=== PATIENT | female | born 1960 | race Caucasian/White ===

== ENCOUNTER 2016-07-24 15:33 | Emergency (ER) | payer MEDICARE ==
[~2016-07-24 15:33] MED LIST: ASCORBIC ACID500 MG PO; ATARAX-DPS25 MG PO; BENADRYL-DPS25 MG PO; BRINTELLIX10 MG PO; BUDESONIDE0.5 MG/2 M IH; BUSPAR DPS15 MG PO; CHLORPHENIRAMINE PO; CLARITIN DPS10 MG PO; DELTASONE DPS10 MG PO; DESYREL-DPS50 MG PO; DULERA 100/58.8 GM IH; DUONEB DPS3 ML IH; FEOSOL-DPS325 MG PO; HYDROCODONE PO; LACTULOSE20 GM/30 M PO; LASIX DPS20 MG PO; LEVAQUIN D IV; LEVAQUIN DPS500 MG PO; LINZESS145 MCG PO; LYRICA75 MG PO; MAALOX DPS30 ML PO; MICRO-K DPS10 MEQ PO; MONTELUKAST SOD10 MG PO; MUCINEX600 MG PO; MUCOMYST 20% DP30 ML PO; MUCOMYST 20% IH; NOLVADEX DPS20 MG PO; NUCYNTA50 MG PO; PRILOSEC DPS20 MG PO; PROAIR RESPICL90 MCG IH; PROTONIX40 MG PO; PROVENTIL HFA6.7 GM IH; ROBITUSSIN AC D30 ML PO; SINGULAIR10 MG PO; SOLU-MEDRO125 MG/2 M IV; SPIRIVA18 MCG IH; TYLENOL DPS325 MG PO; ULTRAM DPS50 MG PO; XANAX DPS0.5 MG PO; ZANAFLEX4 MG PO; [UNRECOGNIZED DRUG - OTHER] PO
--- NOTE | 2016-07-25 00:28 | ER ---
ADMIT: 07/24/2016 RM/LOC: ER [facility] MR#: [id number] [id number] [place], [place] [address] MARSHA BLANC [address] [place] [address] Emergency Room Report SEX: F AGE: 55 : 1960 DATE: 07/24/2016 HISTORY OF PRESENT ILLNESS: The patient is a 55-year-old female with past medical history of bronchitis, asthma, breast cancer, came to the ER with chief complaint of 2 days of increasing cough, shortness of breath, and wheezing. The patient used nebulizer DuoNeb at home which did not work. The patient denies any fever or chills. The patient also states she had lots of phlegm which is white to yellow in color. PHYSICAL EXAMINATION: VITAL SIGNS: The patient had O2 saturation of 95% to 96% on room air, was not tachypneic, was not tachycardic and was afebrile. The patient was coughing multiple times which was productive during the physical examinations. HEAD AND NECK: There was mild erythema in the throat. LUNGS: Have bilateral wheezing and some questionable crackles versus upper airway sounds were audible. ABDOMEN: Soft. The rest of the physical exam is noncontributory. DISPOSITION: The patient received breathing treatment which decreased the wheezing bilaterally. Chest x-ray did not show any obvious infiltration. The patient received Decadron shot IM 10 mg. The patient was re-examined. The patient can be discharged to home with a prescription for Levaquin and also prednisone and follow up with the primary doctor as needed. Asher Garvin MD/ lizandro JOB #: [id number] CC: Seth Tang MD, Attending Physician Rossana Alfred MD, Family Physician
[2016-07-27] MEDS ORDERED: CALTRATE-600 W600 MG PO (13:54)
[2016-07-27] MEDS ORDERED: CLARITIN DPS10 MG PO (14:03)
[2016-07-27] MEDS ORDERED: NOVOLOG100 UNIT/2 SQ (14:10)
[2016-07-27] MEDS ORDERED: XOPENEX1.25 MG/3 IH (14:15)
[2016-07-27] MEDS ORDERED: GLUCAGON HCL1 MG IM (14:15)
[2016-07-27] MEDS ORDERED: PEPCID DPS20 MG PO (14:16)
[2016-07-27] MEDS ORDERED: SPIRIVA18 MCG IH (14:17)
[2016-07-27] MEDS ORDERED: VITAMIN D1000 UNIT PO (14:17)
[2016-07-27] MEDS ORDERED: THERAPEUTIC MUL1 TAB PO (14:17)
[2016-07-27] MEDS ORDERED: GLUTOSE 1537.5 GM PO (14:19)
[2016-07-27] MEDS ORDERED: ZOSYN 3.3753.375 GM IV (14:19)
[2016-08-17] MEDS ORDERED: CEFDINIR300 MG PO (11:54)
[2016-08-17] MEDS ORDERED: BENTYL-DPS20 MG PO (11:55)
[2016-08-17] MEDS ORDERED: PROVENTIL HFA6.7 GM IH (11:56)
[2016-08-17] MEDS ORDERED: ACETADOTE200 MG/1 M IH (12:01)
[2016-08-17] MEDS ORDERED: PULMICORT0.5 MG/21 IH (12:01)
[2016-08-17] MEDS ORDERED: CULTURELLE1 CAP PO (12:02)
[2016-08-17] MEDS ORDERED: AMBIEN DPS5 MG PO (12:03)
[2016-08-17] MEDS ORDERED: TECFIDERA240 MG PO (12:04)
[2016-08-17] MEDS ORDERED: DELTASONE DPS1 MG PO (12:05)
[2016-08-17] MEDS ORDERED: POTASSIUM CHLO20 ME2 PO (12:07)
[2016-08-17] MEDS ORDERED: TUDORZA PRESS400 MCG IH (12:08)
[2016-08-17] MEDS ORDERED: DULERA 100/58.8 GM IH (12:08)
== END 2016-07-24 18:00 | disposition home or self-care (01) ==
LOC: ER 15:33
DX: J44.9 Chronic obstructive pulmonary disease, unspecified (principal); Z88.1 Allergy status to other antibiotic agents; Z79.899 Other long term (current) drug therapy

== ENCOUNTER 2016-07-25 13:11 | Inpatient (IN) | payer MEDICARE, OTHER ==
[~2016-07-25] VITALS: Ht 157.5 cm; Wt 78.4 kg
[2016-07-27] MEDS ORDERED: CALTRATE-600 W600 MG PO (13:54)
[2016-07-27] MEDS ORDERED: CLARITIN DPS10 MG PO (14:03)
[2016-07-27] MEDS ORDERED: NOVOLOG100 UNIT/2 SQ (14:10)
[2016-07-27] MEDS ORDERED: GLUCAGON HCL1 MG IM (14:15)
[2016-07-27] MEDS ORDERED: XOPENEX1.25 MG/3 IH (14:15)
[2016-07-27] MEDS ORDERED: PEPCID DPS20 MG PO (14:16)
[2016-07-27] MEDS ORDERED: VITAMIN D1000 UNIT PO (14:17)
[2016-07-27] MEDS ORDERED: THERAPEUTIC MUL1 TAB PO (14:17)
[2016-07-27] MEDS ORDERED: SPIRIVA18 MCG IH (14:17)
[2016-07-27] MEDS ORDERED: ZOSYN 3.3753.375 GM IV (14:19)
[2016-07-27] MEDS ORDERED: GLUTOSE 1537.5 GM PO (14:19)
--- NOTE | 2016-07-28 08:14 | CO ---
ADMIT: 07/25/2016 RM/LOC: 521 [facility] MR#: [id number] [address] [address] MARSHA LUO [address] [place] [address] Consultation SEX: F AGE: 55 : 1960 DATE OF CONSULTATION: 07/25/2016 ATTENDING PHYSICIAN: Rossana Alfred CONSULTING PHYSICIAN: Octaviano Markham MD, [facility] REASON FOR REFERRAL: Shortness of breath. HISTORY OF PRESENT ILLNESS: Ms. Luo is a 55-year-old female, who carries a lifelong diagnosis of asthma, but she also has COPD apparently. I do not have any PFTs on her previous notes to document this other than the stated history in her chart. She has been having a coughing episodes for the past several days and no fevers or chills. She was seen in the ER last night, given the steroids and she presented again today for worsening shortness of breath. She does not feel much better than when she arrived to the emergency room today. She states that this is fairly typical for her. I do have actual some PFTs from her on 01/22/2016, which showed a FEV1 of 1.70, 70% predicted, and without any change post-bronchodilator. The flow volume loop is unusual and that there is a flattening of the expiratory limb with a normal inspiratory loop. The FEV1/FVC ratio was 68%. She is not on prednisone at home. She is a previous smoker, but quit years ago. She has had a cough, which has been nonproductive for 4 days. For some reason, today, she is not coughing. She has no fevers, chills, night sweats. No chest pain. She has no hemoptysis. She has no history of PVD or DVT or PE. Her nebulizers usually improve her, but not dramatically. This is consistent with her usual symptoms. She usually gets the symptoms in the fall, but she has noted that she has been having more problems with it in the spring as well. She has no orthopnea, no PND, no pedal edema. She has a dog, which she is not allergic to. She is allergic to pollens and cats. She had a CT of her chest in May of this year, which showed no residual opacity in superior segment of right lower lobe; however, inferior aspect of the right upper lobe anterior and inferior aspects, possibly ingestion to superior segment of middle lobe. Adjacent to the fissure, there is a patchy infiltrate somewhat nodular in appearance, that was in May of this year. She is followed by the Pulmonary from [place] as an outpatient. She had CTs of her sinuses in May, showed prior surgery of right sinus low- grade paranasal sinus disease, no findings that suggest acute sinusitis. Typically, she uses her rescue inhalers very infrequently. She describes her symptoms more in her neck and more of breathing in and out. PAST MEDICAL HISTORY: Remarkable for breast cancer 5 years ago, treated with chemo and radiation; multiple sclerosis; hiatal hernia. She has had gastric surgery in the past. She has hypothyroidism, history of depression, kyphoplasty in the past, hysterectomy. ALLERGIES: NO KNOWN DRUG ALLERGIES. SOCIAL HISTORY: Quit smoking in 2010. CURRENT MEDICATIONS: ADMIT: 07/25/2016 RM/LOC: 521 [facility] MR#: [id number] [address] [address] MARSHA LUO [facility] [place] [address] Consultation SEX: F AGE: 55 : 1960 1. Maalox. 2. Mucomyst. 3. Ferrous sulfate. 4. Vitamin C. 5. Alprazolam. 6. Levaquin. 7. Solu-Medrol. 8. Lactulose. REVIEW OF SYSTEMS: Other than mentioned above. GENERAL: No fevers, chills, night sweats. HEENT: No visual problems. No problems hearing. No sinus congestion. CARDIAC and PULMONARY: Other than mentioned above, negative. GI: No reflux symptoms currently. No nausea, vomiting, diarrhea, constipation. No abdominal pain. : No dysuria or pyuria. MUSCULOSKELETAL: No arthralgias or arthritis. SKIN: No acute lesions. NEURO: No focal weakness. She does have AMS. PHYSICAL EXAMINATION: GENERAL: She is alert and oriented x3, in no apparent distress, breathing is unlabored at the current time on room air. VITAL SIGNS: Blood pressure 157/83, pulse 100, respirations 118, respiratory rate 24, temperature is 99.3. HEENT: Sclerae nonicteric. Throat is not erythematous. NECK: Supple. Trachea is midline. No cervical or supraclavicular adenopathy. No bruits. No stridor. LUNGS: Clear to auscultation, but with prolonged expiratory phase I should mention when her breathing pattern she does have an audible noise when she breathes in, it sounds possibly mild stridorous. CV: Regular rate without murmurs, rubs, or gallops. ABDOMEN: Active bowel sounds. Soft, nontender. EXTREMITIES: No cyanosis, clubbing, or edema. LABORATORY DATA: White count 17.2, hemoglobin 11.9, platelets are 290. Electrolytes are all normal except for creatinine slightly high at 1.2. IMAGING: Chest x-ray shows no active pulmonary disease. The CT abnormalities will need to be followed up, I will defer this until after she improves and to her outpatient hydraulic press tender. We need to inform her that this needs to be worked up in the future as well. IMPRESSION: 1. Dyspnea. 2. Chronic obstructive pulmonary disease. ADMIT: 07/25/2016 RM/LOC: 521 [facility] MR#: [id number] [address] [address] MARSHA LUO [address] [place] [address] Consultation SEX: F AGE: 55 : 1960 RECOMMENDATION/DISCUSSION: The patient's flow volume loop and her symptoms suggest more of a fixed, I am wondering if she may have more of a fixed obstruction. I initially thought with her description of her neck episode, she may have vocal cord dysfunction, but that would be somewhat refuted by her previous pulmonary function tests with normal inspiratory limb. I would like to repeat these in the morning. I would be interested to see if that plateau or the flattening of the expiratory limb persists to suggest a variable intrathoracic obstruction. The patient has been started on steroids and antibiotics, frequent bronchodilators, we will see if this improves her tonight. She states that this is fairly typical for her presentations. Thank you for the consultation. Octaviano Markham MD, FCCP/ modl JOB #: [id number] CC: Rossana Alfred, Attending Physician Rossana Alfred, Family Physician
--- NOTE | 2016-07-29 17:07 | ER ---
ADMIT: 07/25/2016 RM/LOC: 521 [facility] MR#: [id number] ACC#: [id number] [address] [place], [place] [address] MARSHA BLANC [address] [place] [address] Emergency Room Report SEX: F AGE: 55 : 1960 DATE: 07/25/2016 ADDENDUM: A 55-year-old white female coming in with shortness of breath. She does have asthma that kind of flares up recurrently. She was seen last night here, given steroids as treatment but just was not getting any better. White count 17.2. I do not know if that is from steroids. Her glucose is 325. She does have diabetes, again I do not know if the prednisone make that worse or not. Chest x-ray, there is questionable patchy area in the right upper quadrant but she has no fever. She is not coughing up anything. I do not know if that is significant or not. I spoke with Dr. Gaytan. The patient is not septic. This is asthmatic reactive disease with acute exacerbation is what it is. She also has history of chronic pain syndrome as well with narcotic dependency. Dr. Gaytan will leave orders for her. CONDITION ON DISCHARGE AND ADMISSION: Fair. Kash Carroll MD/ modl JOB #: [id number] CC: Rossana Alfred MD, Attending Physician Rossana Alfred MD, Family Physician
--- NOTE | 2016-08-04 08:26 | DS ---
ADMIT: 07/25/2016 RM/LOC: 521 [facility] MR#: [id number] [id number] [place], [place] [address] YANCY BLANC [address] [place] [address] Discharge Summary SEX: F AGE: 55 : 1960 CORRECTION: 08/01/2016 1149 DJS ADMISSION DATE: 07/25/2016 DISCHARGE DATE: 07/26/2016 FINAL DIAGNOSIS: 1. Ruptured abdominal viscus with pneumoperitoneum and developing abdominal abscess. 2. Asthma with mild exacerbation. 3. Type 2 diabetes with increased blood sugars due to current medical status. 4. History of chronic multiple sclerosis. 5. History of breast cancer and secondary peripheral neuropathy from chemotherapy. 6. Depression with anxiety. HOSPITAL COURSE: Yancy was admitted on July 25 complaining of shortness of breath. She said she feels like she cannot take a full breath. She started to cough a little bit but really coughing was not her main complaint. She was admitted, started on IV antibiotic and IV steroid aimed at the asthma. She is not requiring supplemental oxygen. She is afebrile. However, overnight since she was admitted, she started to develop more and more abdominal distention and pain. She had a lot of tympany on the abdominal exam, and x-ray showed free air under the diaphragm. She then underwent CT scan which reveals pneumoperitoneum and findings of post Jihan-en-Y surgical changes and "large loculated fluid collection posterior to the anastomotic site. Anastomotic leak and developing abscess a primary consideration." She also has some interstitial nodular opacities in the lungs noted. Radiologist read "infectious process is primary consideration, could not exclude fungal etiology. 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 Because Yancy had a previous pneumoperitoneum and a mycotic abscess removed in January of 2016 at [facility] in [place], I am transferring her back there for reevaluation by her surgeon there. I also believe she will need consultants with Gastroenterology. We do not have the service here in [place]. The patient has chronic esophagitis, history of pyloric channel ulcer, and duodenitis. I spoke with the hospitalist, Dr. Acosta, and she accepted the patient in transfer. Patient will transfer via [facility] ambulance service. She is unable to sit up due to severe pain from her pneumoperitoneum. The patient has accepted the risks and benefits of transfer and understands the need to transfer for surgical intervention and gastroenterology intervention. On transfer, we will continue her IV fluids and keep her n.p.o. She last ate at about 7:30 a.m. with a small amount of breakfast. I will continue her other medications and let the accepting physician decide on her oral medications depending on the length of time she will be n.p.o. She is currently on ADMIT: 07/25/2016 RM/LOC: 521 [facility] MR#: [id number] [address] [place], [place] [id number] YANCY BLANC [address] [place] [address] Discharge Summary SEX: F AGE: 55 : 1960 Levaquin IV as well as Zosyn IV and Solu-Medrol IV. We are using sliding scale insulin. I note that just prior to transfer she had a blood glucose of 190. Since she is not eating, I will not treat that with insulin but will just monitor with her Accu-Cheks at the accepting site. Rossana Alfred MD/ martin JOB #: [id number] CC: Rossana Alfred MD, Attending Physician Rossana Alfred MD, Family Physician Natali Acosta MD [address] [address] CORRECTION: 08/01/2016 1149 DJS
--- NOTE | 2016-08-12 13:58 | HP ---
ADMIT: 07/25/2016 RM/LOC: 521 [facility] MR#: [id number] [address] [address] MARSHA BLANC [address] [place] [address] History and Physical SEX: F AGE: 55 : 1960 DATE OF SERVICE: CHIEF COMPLAINT: Severe shortness of breath, dyspnea, and cough. CLINICAL HISTORY: The patient is a 55-year-old white female, with history of COPD/asthma with history of frequent exacerbations. Patient had onset of upper respiratory symptoms with congestion and cough on 07/22/2016, has gotten progressively worse since that time with increasing dyspnea and increasing cough. Despite using her nebulizer frequently, her respiratory symptoms have progressively gotten worse. As a result of that, she initially went to the ER on Monday07/24/2016, was seen with what was felt to be an acute bronchitis and acute asthma exacerbation. Her chest x-ray at that time showed no pneumonia. She was given several breathing treatments. She was also given Decadron IM and started on oral Levaquin in addition to the Keflex that she had been started on 07/22/2016. The patient notes that after being in the ER on 07/24/2016, she did better for about 4 hours. Then her wheezing and dyspnea reoccurred. She was unable to sleep through the night of Monday night and because of her increasing wheezing and dyspnea, she re-presented to the ER on 07/25/2016, and was seen by Dr. Carroll. Repeat chest x-ray showed questionable infiltrate in the right upper lobe that was not present on the chest x-ray from the day prior. In view of her worsening symptoms and acute COPD and acute asthma exacerbation, it was felt best to admit the patient since she did not respond real well to initial nebulizer treatments and steroids given in the ER, again on 07/25/2016. Subsequently we are admitting her to the hospital with acute COPD exacerbation. PAST MEDICAL HISTORY: The patient was last hospitalized with similar symptoms on 04/19/2016, was hospitalized for several days at that time with an acute COPD exacerbation due to asthmatic bronchitis. She is noted to have had multiple admissions for similar respiratory symptoms. Her chronic medical problems are noted to include: 1. COPD/asthma. 2. Major depressive disorder, recurrent. 3. Type 2 diabetes. 4. Esophageal reflux with history of esophageal stricture and prior stenting of the esophagus. 5. Gastroparesis. 6. Hyperlipidemia. 7. Hypothyroidism. 8. Osteoporosis. 9. Lumbar spinal stenosis. 10.Chronic pain syndrome. 11.History of breast cancer status post mastectomy and chemo radiation therapy. 12.Chemotherapy-induced peripheral neuropathy. 13.Multiple sclerosis. 14.Chronic anxiety disorder. 15.ADHD. ADMIT: 07/25/2016 RM/LOC: 521 [facility] MR#: [id number] [address] [address] MARSHA BLANC [facility] [place] [address] History and Physical SEX: F AGE: 55 : 1960 PREVIOUS SURGICAL PROCEDURES: include a left mastectomy in September of 2010 and a right mastectomy in 2011. The patient has history of previous jejunostomy. She has a history of bilateral salpingo-oophorectomy, previous tubal ligation. She has had to have kyphoplasty twice for vertebral compression fractures. She has had multiple EGDs and colonoscopy. In 2016, she had an esophageal dilatation in the fall. In 2015, she also had an exploratory laparotomy in [place] at [facility]. She has had a previous intraabdominal fungal abscess. The patient is noted to also have a history of immunodeficiency, has a history of IgG deficiency and receives IVIG on a monthly basis. She is followed by Infectious Disease for her immune deficiency disorder. CURRENT MEDICATIONS: Include. 1. DuoNeb via twin jet nebulizer q.i.d. and p.r.n. 2. Tudorza 400 mcg 1 puff twice daily. 3. Mucomyst 20% via twin jet nebulizer twice a day. 4. ProAir HFA 2 puffs every 4 hours p.r.n. 5. Lasix 20 mg twice a day. 6. Potassium chloride 20 mEq twice a day. 7. Zantac 150 mg daily. 8. Protonix 40 mg twice a day. 9. Trintellix 20 mg daily. 10.Mucinex 1200 mg twice daily. 11.Claritin 10 mg daily. 12.Singulair 10 mg at bedtime. 13.Tizanidine 4 mg 1 every 8 hours for muscle spasms. 14.Hydroxyzine 25 mg 1 tab every 8 hours p.r.n. anxiety. 15.Xanax 0.5 mg t.i.d. 16.BuSpar 15 mg t.i.d. 17.Lyrica 75 mg t.i.d. 18.Linzess 145 mcg one cap daily. 19.Phenergan DM 1 teaspoon every 4 hours p.r.n. cough. 20.Trazodone 25-50 mg at bedtime. 21.Ambien 5 mg 1 daily at bedtime. 22.Tramadol 50 mg 1 or 2 tablets every 8 hours for pain. 23.Nucynta ER 50 mg 1 tab b.i.d. 24.Keflex 500 mg 2 caps b.i.d., this was started on 07/20/2016 at the onset of her URI symptoms. 25.Levofloxacin 750 mg one daily, started after being seen in the ER on 07/24/2016. 26.Prednisone 20 mg b.i.d. for 5 days started on 07/24/2016. 27.Multivitamin 1 daily. 28.Calcium 600 mg and vitamin D 1 daily. 29.Vitamin D3 of 2000 units daily. ALLERGIES: ALLERGIES INCLUDE SILVADENE TOPICAL APPOINTMENT. NO OTHER KNOWN ALLERGIES. SOCIAL HISTORY: The patient is a former smoker quit smoking about 5 years ADMIT: 07/25/2016 RM/LOC: 521 [facility] MR#: [id number] [address] [address] MARSHA BLANC [address] [place] [address] History and Physical SEX: F AGE: 55 : 1960 ago. She is a social drinker, has an occasional alcoholic beverage. She currently lives with her significant other and they have been together on a long-term basis. She denies any illicit drug use. In the past, has had abuse of her prescription opiates. FAMILY HISTORY: At this time is unremarkable, noncontributory. REVIEW OF SYSTEMS: CONSTITUTIONAL: The patient complains of chronic fatigue, weakness, and generally just never feeling well. HEENT: She denies any vision or hearing changes. Does complain of upper respiratory congestion. Has had scratchy throat, nasal and sinus congestion for the last 4 to 5 days. The patient does have history of esophageal motility disorder due to her chronic esophagitis and chronic esophageal stricture. She denies any recent vomiting. PULMONARY: The patient has a history of COPD/asthma, frequent bouts of bronchitis. Has been having increased cough and increased shortness of breath, audible wheezing for the last 4 to 5 days. She states her chest feels tight. She notes her cough is minimally productive, no hemoptysis. CARDIAC: No significant history of coronary artery disease. No syncope. No history of tachyarrhythmias. The patient notes that she has had significant orthopnea the last few nights and has had to sit up, unable to sleep lying down. GASTROINTESTINAL: History of chronic abdominal pain, chronic constipation. She has history of previous intraabdominal abscess. Also has history of esophageal stricture. No recent diarrhea. No melena or hematochezia. GENITOURINARY: No flank pain. No dysuria. MUSCULOSKELETAL: Chronic neck, pain chronic low back pain, generalized arthralgias. NEUROLOGIC: No focal symptoms. Does have frequent headaches. Does have history of multiple sclerosis. PSYCHIATRIC: History of chronic depression and anxiety. PHYSICAL EXAMINATION: VITAL SIGNS: Her temp is 100.8, pulse is 116, respirations 20, blood pressure 120/69, O2 saturation is 94% with oxygen at 2 L. O2 saturation in the ER at rest without oxygen was 90%-91%. Current weight 170 pounds. GENERAL: The patient is a 55-year-old white female, who appears significantly older than her stated age. She is somewhat anxious. She is sitting on the side of the bed noting that she is too short of breath to lay down. No audible wheezing noted at this time. HEENT: Revealed her ears to be clear. She has some mucoid nasal congestion. Nasal mucosa is boggy and inflamed. Do note her pupils are equal and reactive. Sclerae nonicteric. Vision grossly intact. Throat today is mildly inflamed. No exudate. Oral mucous membranes are moist. NECK: Noted to be supple. No neck vein distention. No neck masses. Thyroid not enlarged. LUNGS: Noted to be diminished throughout. Breath sounds are coarse. She has a few scattered expiratory wheezes and some coarse rhonchi. I cannot appreciate any rales. No dullness to percussion. ADMIT: 07/25/2016 RM/LOC: 521 [facility] MR#: [id number] [facility] [address] [address] MARSHA BLANC [address] [place] [address] History and Physical SEX: F AGE: 55 : 1960 HEART: Noted have a regular rhythm with tachycardia. No murmurs noted. ABDOMEN: Protuberant, somewhat distended. She is tympanic in all 4 quadrants. Bowel sounds are present. She has some mild diffuse tenderness with palpation. She has an incisional scar from prior exploratory laparotomy. No hernia is noted. I cannot appreciate any masses or organomegaly. No abdominal bruits. BREAST AND PELVIC: Exams not performed. EXTREMITIES: Noted to have 1+ pedal and ankle edema. Trace of pretibial edema. Peripheral circulation appears to be good with good pedal pulses. No calf tenderness. No evidence of thrombophlebitis. NEUROLOGIC: I cannot see any focal deficits. Balance seems to be normal. Gait is stable. Cranial nerves II through XII are grossly intact. MENTAL STATUS EXAMINATION: She is pleasant, cooperative. Affect is somewhat depressed. She seems to be very anxious. She is oriented x3. ASSESSMENT AT THE TIME OF ADMISSION: 1. Acute chronic obstructive pulmonary disease exacerbation/acute asthmatic bronchitis. 2. Early right upper lobe infiltrate suspected right upper lobe pneumonia. 3. Chronic obstructive pulmonary disease/asthma. 4. Type 2 diabetes. 5. Multiple sclerosis. 6. Chemotherapy-induced peripheral neuropathy. 7. Lumbar spinal stenosis. 8. Chronic pain syndrome. 9. Chronic gastroesophageal reflux disease, esophageal reflux with history of esophageal stricture. 10.Anemia of chronic disease. 11.Chronic abdominal pain. 12.Hypothyroidism. 13.Osteoporosis. 14.History of breast cancer status post bilateral mastectomy. 15.Immune deficiency disorder with IgG deficiency. PLAN: Plan is to admit the patient. We will treat aggressively for her COPD exacerbation with IV steroids, IV antibiotics, and frequent nebulizer treatments. We will ask Pulmonary Medicine to see her as well. We will continue with her usual chronic pain management. Francois Gaytan MD/ lizandro JOB #: [id number] CC: Rossana Alfred MD, Attending Physician Rossana Alfred MD, Family Physician
[2016-08-17] MEDS ORDERED: CEFDINIR300 MG PO (11:54)
[2016-08-17] MEDS ORDERED: BENTYL-DPS20 MG PO (11:55)
[2016-08-17] MEDS ORDERED: PROVENTIL HFA6.7 GM IH (11:56)
[2016-08-17] MEDS ORDERED: ACETADOTE200 MG/1 M IH (12:01)
[2016-08-17] MEDS ORDERED: PULMICORT0.5 MG/21 IH (12:01)
[2016-08-17] MEDS ORDERED: CULTURELLE1 CAP PO (12:02)
[2016-08-17] MEDS ORDERED: AMBIEN DPS5 MG PO (12:03)
[2016-08-17] MEDS ORDERED: TECFIDERA240 MG PO (12:04)
[2016-08-17] MEDS ORDERED: DELTASONE DPS1 MG PO (12:05)
[2016-08-17] MEDS ORDERED: POTASSIUM CHLO20 ME2 PO (12:07)
[2016-08-17] MEDS ORDERED: DULERA 100/58.8 GM IH (12:08)
[2016-08-17] MEDS ORDERED: TUDORZA PRESS400 MCG IH (12:08)
== END 2016-07-26 13:20 | disposition short-term general hospital (02) | DRG 202 ==
LOC: ER 13:11 → 5MS 15:45
PROVIDERS: ADMIT Family Medicine
DX: J45.901 Unspecified asthma with (acute) exacerbation (principal); J18.9 Pneumonia, unspecified organism; K65.1 Peritoneal abscess; D80.3 Selective deficiency of immunoglobulin G [IgG] subclasses; K66.8 Other specified disorders of peritoneum; E11.43 Type 2 diabetes mellitus with diabetic autonomic (poly)neuropathy; J44.0 Chronic obstructive pulmonary disease with (acute) lower respiratory infection; G62.0 Drug-induced polyneuropathy; J44.1 Chronic obstructive pulmonary disease with (acute) exacerbation; F32.9 Major depressive disorder, single episode, unspecified; K21.9 Gastro-esophageal reflux disease without esophagitis; K31.84 Gastroparesis; E78.5 Hyperlipidemia, unspecified; E03.9 Hypothyroidism, unspecified; M81.0 Age-related osteoporosis without current pathological fracture; G89.4 Chronic pain syndrome; M48.06 Spinal stenosis, lumbar region; T45.1X5A Adverse effect of antineoplastic and immunosuppressive drugs, initial encounter; K20.9 Esophagitis, unspecified; K44.9 Diaphragmatic hernia without obstruction or gangrene; G35 Multiple sclerosis; F41.9 Anxiety disorder, unspecified; F90.9 Attention-deficit hyperactivity disorder, unspecified type; Z87.891 Personal history of nicotine dependence; Z85.3 Personal history of malignant neoplasm of breast; Z90.12 Acquired absence of left breast and nipple; Z98.0 Intestinal bypass and anastomosis status; Z98.84 Bariatric surgery status; R10.0 Acute abdomen

== ENCOUNTER → 2016-08-12 | Outpatient (CLI) | payer MEDICARE ==
[~2016-08-12] MED LIST changes: +ACETADOTE200 MG/1 M IH; +AMBIEN DPS5 MG PO; +BENTYL-DPS20 MG PO; +CALTRATE-600 W600 MG PO; +CEFDINIR300 MG PO; +CULTURELLE1 CAP PO; +DELTASONE DPS1 MG PO; +GLUCAGON HCL1 MG IM; +GLUTOSE 1537.5 GM PO; +NOVOLOG100 UNIT/2 SQ; +PEPCID DPS20 MG PO; +POTASSIUM CHLO20 ME2 PO; +PULMICORT0.5 MG/21 IH; +TECFIDERA240 MG PO; +THERAPEUTIC MUL1 TAB PO; +TUDORZA PRESS400 MCG IH; +VITAMIN D1000 UNIT PO; +XOPENEX1.25 MG/3 IH; +ZOSYN 3.3753.375 GM IV
== END | disposition home or self-care (01) ==
LOC: RAD.S 10:28
DX: J18.9 Pneumonia, unspecified organism (principal); R91.8 Other nonspecific abnormal finding of lung field

== ENCOUNTER 2016-08-13 16:12 | Inpatient (IN) | payer MEDICARE, OTHER ==
[~2016-08-13] VITALS: Ht 157.5 cm; Wt 77.0 kg
[~2016-08-13 16:12] MED LIST changes: -ACETADOTE200 MG/1 M IH; -AMBIEN DPS5 MG PO; -BENTYL-DPS20 MG PO; -CEFDINIR300 MG PO; -CULTURELLE1 CAP PO; -DELTASONE DPS1 MG PO; -POTASSIUM CHLO20 ME2 PO; -PULMICORT0.5 MG/21 IH; -TECFIDERA240 MG PO; -TUDORZA PRESS400 MCG IH
--- NOTE | 2016-08-15 13:37 | HP ---
ADMIT: 08/13/2016 RM/LOC: [facility] MR#: [id number] [address] [address] MARSHA BLANC [address] [place] [address] History and Physical SEX: F AGE: 55 : 1960 DATE OF SERVICE: CHIEF COMPLAINT: Shortness of breath and wheezing. HISTORY OF PRESENT ILLNESS: The patient states she has had one day of increased shortness of breath, wheezing, and some fatigue. The patient has actually called in earlier today to the clinic line where I spoke with her and is very obvious that she was struggling to breathe and talk at the same time. I could also hear audible wheezing, so we sent the patient to the ER. Of note, the patient was recently discharged on Monday08/08/2016 from [facility] in [place], she had gone in a few weeks ago for a surgery on her Y- en-Jihan to be fixed. The patient has a history of radiation injury to the abdomen. She has had multiple surgeries for this while in the hospital there in [place], she developed pneumonia and was actually in the ICU for about 11 days, she said. The patient was on antibiotics and steroids and she recently just stopped her steroid taper today, and since being discharged on Monday, she said she has felt very well this week. Has not really had any complaints until today. She is not aware of any exposures to any illnesses, but she does mention she has allergy. She was outside today, is unsure if that is what is contributing to some of these symptoms worsening. PAST MEDICAL HISTORY: Significant for COPD and asthma, major depression, GERD with a history of stricture requiring straight dilation. 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 PAST SURGICAL HISTORY: Fairly extensive. She has had a double mastectomy, bilateral salpingo-oophorectomy, previous tubal ligation. She also has had kyphoplasty twice, esophageal dilation, exploratory lap with the most recent one being a few weeks ago in 2017. CURRENT MEDICATIONS: Include: 1. Loratadine 10 mg daily. 2. Bentyl 20 mg four times daily as needed. 3. The patient is on Ceftin ER 300 mg twice a day. 4. Ventolin as needed. 5. Tizanidine every 8 hours as needed. 6. Ultram 50 mg four times daily. 7. Tylenol 325 one to two tabs as needed. 8. Lyrica 75 mg three times daily. 9. Brintellix 20 mg daily. 10.BuSpar 15, 3 times a day. 11.Lasix 20 mg twice daily. 12.Singulair 10 mg at bedtime. 13.Mucinex 1200 mg twice a day. 14.Acetadote 200 mg twice daily inhaler. 15.Pulmicort 0.5 mg twice daily done with the Acetadote inhaler. ADMIT: 08/13/2016 RM/LOC: [facility] MR#: [id number] [address] [place] [id number] MARSHA BLANC [address] [place] [address] History and Physical SEX: F AGE: 55 : 1960 16.Linzess 145 mcg every other day. 17.Ambien at bedtime. 18.Alprazolam 0.5 mg three times daily. 19.Tecfidera 240 mg twice daily. ALLERGIES: SEASONAL ALLERGIES AND ALSO SILVADENE CREAM. FAMILY HISTORY: She states she is adopted. She does state some of her maternal aunts have had strokes in the past. SOCIAL HISTORY: She is a former smoker, quit 8 years ago. She states she does not currently drink. She denies any illicit drug use. REVIEW OF SYSTEMS: CONSTITUTIONAL/GENERAL: The patient does have a fever. She has had some chronic fatigue and weakness today. HEENT: No vision or hearing changes. Does have a little bit of upper respiratory congestion. No sore throat. Some mild nasal drainage. No dysphagia. No vomiting. She does complain of GERD from time to time. PULMONARY: Increasing shortness of breath today. Audible wheezing today. Increased work of breathing. No sputum production. CARDIAC: No chest pain. She has had some more orthopnea. Last few nights, she is having this more due to her difficulty breathing. GI: No abdominal pain. No diarrhea or constipation. Recently just underwent surgery. : No flank pain. No dysuria. MUSCULOSKELETAL: No edema bilaterally in the lower extremities. She does have chronic low back pain and other nonspecific pain at times, and joint arthralgias. NEURO: No seizure-like activities. No stroke-like symptoms. She does have a history of multiple sclerosis. PSYCHIATRY: She confirmed anxiety and depression. PHYSICAL EXAMINATION: VITAL SIGNS: Most recent vital signs show temperature 98.3, pulse of 115, respiratory rate of 18, blood pressure 116/85, and O2 sats of 94% on room air. Of note, the patient did have a temperature of 100.4 when arriving to the ER. GENERAL: She is alert and oriented x3. She is very pleasant. She has some mild acute distress secondary to the increased work of breathing. HEENT: Normocephalic and atraumatic. Moist mucous membranes. Extraocular muscles are intact. She does have some nasal turbinate swelling. Supple neck with good range of motion. HEART: Regular, rhythm is tachycardic at this time. No murmurs appreciated. LUNGS: Do have some coarse signs bilaterally, but no acute wheezing or areas of consolidation specifically coarse sounds, but somewhat consistent with her radiation injury. ABDOMEN: Soft and nontender. Positive bowel sounds. Large healed incision bustillo vertically down the midline of the abdomen. EXTREMITIES: Show no signs of edema. 2+ pulses bilaterally in radial, ADMIT: 08/13/2016 RM/LOC: [facility] MR#: [id number] [address] [address] MARSHA BLANC [address] [place] [address] History and Physical SEX: F AGE: 55 : 1960 dorsalis pedis, and tibialis. SKIN: Shows no signs of rash, but does have some areas of bruising from previous needle sticks. NEURO: Cranial nerves II through XII are grossly intact. PSYCH: No acute distress at this time. No acute anxiety or depression symptoms. LABORATORY DATA: Workup in the ER so far has shown a normal PT/INR, elevated white blood cells of 12.5, of note, the patient was on steroids at that time, hemoglobin slightly low at 7.8, platelets was elevated at 549, ANC was 10.1 slightly high. Lactic acid was 2.7 in the ER and repeat 4 hours later was also 2.7. Electrolytes were normal except for an elevated blood glucose of 181, phosphorus was slightly low at 2.4. Procalcitonin was elevated at 1.26. Chest x-ray however was normal. ASSESSMENT AND PLAN: 1. Acute COPD/asthma exacerbation. 2. Multiple sclerosis. 3. Type 2 diabetes. 4. Chronic pain syndrome. 5. Radiation-induced peripheral neuropathy as well as radiation-induced lung damage, esophageal damage, and stomach damage. 6. Type 2 diabetes. 7. Major depressive disorder, anxiety. 8. Hypothyroidism. 9. Gastroesophageal reflux disease. We will go ahead and admit the patient. The patient is meeting sepsis criteria at this time. We will get blood cultures that are pending. We will admit the patient to [facility] with tele. We will continue trending lactic acids. We will repeat labs in the morning. Start the patient on IV steroids as well as IV antibiotics. We will schedule DuoNebs q.4 hours with p.r.n. every 2 hours as needed. We will have the patient get some basic maintenance fluid of 100 mL/h normal saline. The patient was discussed with Dr. Chowdary. Becca Carrasquillo MD Resident / Rossana Alfred MD / lizandro JOB #: [id number] CC: Rossana Alfred, Attending Physician Sly Berkowitz, Family Physician
--- NOTE | 2016-08-17 08:18 | DS ---
ADMIT: 08/13/2016 RM/LOC: 511 [facility] MR#: [id number] [id number] [place], [place] [address] YANCY BLANC [address] [place] [address] Discharge Summary SEX: F AGE: 55 : 1960 ADMISSION DATE: 08/13/2016 DISCHARGE DATE: 08/16/2016 FINAL DIAGNOSES: 1. Asthma, moderate persistent with exacerbation. 2. Chronic multiple sclerosis. 3. Depression and anxiety. 4. Recent surgery for ruptured viscus at site of previous Jihan-en-Y surgery. Yancy was home from the hospital for about 5 days after having surgery at [facility] in [place] for perforation of her stomach at the site of a prior Jihan-en-Y bypass. I had seen her in the office, and she was getting along fairly well. However, on the night of admission, she had a pretty sudden onset of chest tightness and wheezing. She was admitted to the hospital with asthma exacerbation and given steroids in the emergency room and then switched over to oral steroids. Rocephin was started. Chest x-ray did not show any obvious infiltrate. Over the course of the next few days, symptoms improved dramatically. She still has some coarseness to her lungs but has been on room air the entire time. She has no fevers. She will be dismissed home and plan follow up as an outpatient. She does have an appointment with Pulmonology in 48 hours that was already set up, and she will keep that. She also has an appointment with her surgeon in [place], Dr. Knapp at [facility]. The incision on her abdomen is a large ventral incision and is healing very well. That does not appear to be contributing to any of her pulmonary troubles. Pain is well controlled in that regard, and she is able to take deep breaths. Regarding her anxiety, she is tolerating her prednisone fairly well. She will continue her BuSpar and has scheduled Xanax as well as an occasional Xanax p.r.n. I will see her in my office in followup within the next couple weeks as well. DISCHARGE MEDICATIONS: 1. Ambien 5 mg at bedtime. 2. BuSpar 15 mg t.i.d. 3. Claritin 10 mg daily. 4. Culturelle b.i.d. 5. Linzess 145 mcg daily. 6. Lyrica 75 mg t.i.d. 7. Mucinex 1200 mg b.i.d. 8. Tecfidera 240 mg 1 b.i.d. 9. Singulair 10 mg at bedtime. 10.Trintellix 20 mg daily. 11.Ultram 50 mg q.i.d. 12.Xanax 0.5 mg t.i.d. as well as an additional Xanax p.r.n. for a max of 4 doses total per day. 13.DuoNeb q.4 hours via nebulizer, which she will continue until she sees Pulmonology and then discuss tapering. ADMIT: 08/13/2016 RM/LOC: 511 [facility] MR#: [id number] [facility] [address] [id number] YANCY BLANC Susannah [address] [place] [address] Discharge Summary SEX: F AGE: 55 : 1960 14.Mucomyst 1 mL nebulized b.i.d. 15.Bentyl 20 mg q.i.d. as needed. She also has p.r.n.: 1. Tylenol. 2. Zanaflex. 3. DuoNebs. Other scheduled medicines are: 1. Potassium 20 mEq p.o. b.i.d. 2. Pantoprazole 40 mg daily. 3. Dulera 1 inhalation b.i.d. 4. Tudorza 1 inhalation daily. 5. She will be on prednisone 40 mg daily for August 16 and and then 30 mg daily August 18, , and . She will then go down to 20 mg daily for August 21, and and 10 mg daily for and then discontinue. She can review that with Pulmonology as well. Rossana Alfred MD/ martin JOB #: [id number] CC: Rossana Alfred MD, Attending Physician Sly Berkowtiz MD, Family Physician Fatimah Stephenson, [facility] Pulmonary Dept [address] [place] [id number]
[2016-08-17] MEDS ORDERED: CEFDINIR300 MG PO (11:54)
[2016-08-17] MEDS ORDERED: BENTYL-DPS20 MG PO (11:55)
[2016-08-17] MEDS ORDERED: PROVENTIL HFA6.7 GM IH (11:56)
[2016-08-17] MEDS ORDERED: PULMICORT0.5 MG/21 IH (12:01)
[2016-08-17] MEDS ORDERED: ACETADOTE200 MG/1 M IH (12:01)
[2016-08-17] MEDS ORDERED: CULTURELLE1 CAP PO (12:02)
[2016-08-17] MEDS ORDERED: AMBIEN DPS5 MG PO (12:03)
[2016-08-17] MEDS ORDERED: TECFIDERA240 MG PO (12:04)
[2016-08-17] MEDS ORDERED: DELTASONE DPS1 MG PO (12:05)
[2016-08-17] MEDS ORDERED: POTASSIUM CHLO20 ME2 PO (12:07)
[2016-08-17] MEDS ORDERED: TUDORZA PRESS400 MCG IH (12:08)
[2016-08-17] MEDS ORDERED: DULERA 100/58.8 GM IH (12:08)
--- NOTE | 2016-09-22 20:05 | ER ---
ADMIT: 08/13/2016 RM/LOC: 511 [facility] MR#: [id number] [id number] [place], [place] [id number] MARSHA BLANC [address] [place] [address] Emergency Room Report SEX: F AGE: 55 : 1960 DATE: 08/13/2016 See T-sheet for complete H and P. ADDENDUM: A 55-year-old female, presents complaining of shortness of breath and cough. She actually had a recent admission at [facility]. She was seen earlier today at [facility] and was sent over to the ER for further evaluation for her increased work of breathing and shortness of breath. PHYSICAL EXAMINATION: GENERAL: Showed that she is in mild distress with coarse breath sounds throughout. She is otherwise alert. HEENT: Head is atraumatic. Posterior oropharynx is patent. HEART: Tachycardic. Regular rhythm. ABDOMEN: Soft and nontender. SKIN: Warm and dry. She is not cyanotic. She has no skin lesions or rashes. She has no noticeable pedal edema. LABORATORY DATA: Shows her white count is elevated at 12.5 with elevated platelets of 549. INR was normal. Her BUN is slightly elevated at 27, glucose 181, procalcitonin is 1.36. Chest x-ray was normal. HOSPITAL COURSE: The patient was given Solu-Medrol 125 mg IV, one of Ativan for anxiety, and tramadol 100 mg p.o. for pain. She also received one Blackburn while in the Emergency Department. She was given a DuoNeb with some improvement in her symptoms, but she has nowhere near her baseline. So, I did contact Dr. Alfred and the patient will be admitted for her COPD exacerbation. The patient is admitted in stable condition. Merlin Novak MD/ lizandro JOB #: [id number] CC: Rossana Alfred MD, Attending Physician Sly Berkowitz MD, Family Physician
== END 2016-08-16 12:13 | disposition home or self-care (01) | DRG 202 ==
LOC: ER 16:12 → 5MS 19:43
PROVIDERS: ADMIT Family Medicine
DX: J45.41 Moderate persistent asthma with (acute) exacerbation (principal); J70.1 Chronic and other pulmonary manifestations due to radiation; G62.0 Drug-induced polyneuropathy; E11.43 Type 2 diabetes mellitus with diabetic autonomic (poly)neuropathy; G35 Multiple sclerosis; K31.84 Gastroparesis; E87.6 Hypokalemia; F32.9 Major depressive disorder, single episode, unspecified; K21.9 Gastro-esophageal reflux disease without esophagitis; G62.82 Radiation-induced polyneuropathy; G89.4 Chronic pain syndrome; F41.9 Anxiety disorder, unspecified; F90.9 Attention-deficit hyperactivity disorder, unspecified type; T45.1X5S Adverse effect of antineoplastic and immunosuppressive drugs, sequela; Z90.13 Acquired absence of bilateral breasts and nipples; Z87.891 Personal history of nicotine dependence

== ENCOUNTER → 2016-08-24 | Outpatient (CLI) | payer MEDICARE, OTHER ==
[~2016-08-24] MED LIST changes: +ACETADOTE200 MG/1 M IH; +AMBIEN DPS5 MG PO; +BENTYL-DPS20 MG PO; +CEFDINIR300 MG PO; +CULTURELLE1 CAP PO; +DELTASONE DPS1 MG PO; +POTASSIUM CHLO20 ME2 PO; +PULMICORT0.5 MG/21 IH; +TECFIDERA240 MG PO; +TUDORZA PRESS400 MCG IH
== END | disposition home or self-care (01) ==
LOC: RAD.S 12:43
DX: J18.9 Pneumonia, unspecified organism (principal); J47.9 Bronchiectasis, uncomplicated; R91.8 Other nonspecific abnormal finding of lung field; I25.10 Atherosclerotic heart disease of native coronary artery without angina pectoris; K22.8 Other specified diseases of esophagus